=== PATIENT | female | born 1945 | race African-American/Black ===

== ENCOUNTER 2016-02-29 09:49 | Outpatient (CLI) | payer MEDICARE, OTHER ==
[2014-05-30 10:05] VITALS: BP 124/70
[2016-02-29 10:40] LABS: eGFR (African) > 60; eGFR (Non-African) > 60
== END 2016-02-29 09:50 ==
LOC: LAB 09:49
PROVIDERS: ATTEND Family Medicine
DX: I10 Essential (primary) hypertension (principal); E11.9 Type 2 diabetes mellitus without complications
CPT/HCPCS: 36415; 80048; 83036

== ENCOUNTER 2016-06-28 09:39 | Outpatient (CLI) | payer MEDICARE, OTHER ==
[2014-05-30 10:05] VITALS: BP 124/70
== END 2016-06-28 09:40 ==
LOC: LAB 09:39
PROVIDERS: ATTEND Family Medicine
DX: E78.00 Pure hypercholesterolemia, unspecified (principal)
CPT/HCPCS: 36415; 80061

== ENCOUNTER 2016-11-01 10:00 | Outpatient (CLI) | payer MEDICARE, OTHER ==
[2014-05-30 10:05] VITALS: BP 124/70
[2016-11-01 17:31] LABS: TOTAL PROTEIN 7.6 g/dL (6.0-8.5)
== END 2016-11-01 10:02 ==
LOC: LAB 10:00
PROVIDERS: ATTEND Family Medicine
DX: E11.9 Type 2 diabetes mellitus without complications (principal)
CPT/HCPCS: 36415; 80053; 83036

== ENCOUNTER 2018-01-12 11:59 | Outpatient (CLI) | payer MEDICARE, OTHER ==
[2014-05-30 10:05] VITALS: BP 124/70
== END 2018-01-12 12:00 ==
LOC: LAB 11:59
PROVIDERS: ATTEND Internal Medicine
DX: E21.3 Hyperparathyroidism, unspecified (principal); E21.0 Primary hyperparathyroidism
CPT/HCPCS: 36415; 80069; 83735

== ENCOUNTER 2018-05-13 11:40 | Outpatient (CLI) | payer MEDICARE, OTHER ==
[2014-05-30 10:05] VITALS: BP 124/70
[2018-05-13 13:16] LABS: MEAN CORPUSCULAR HEMOGLOBIN 28.3 pg (28.0-34.0); MONOCYTES % 4.5 % (0.0-11.0)
[2018-05-13 13:17] LABS: BASOPHILS % 0.5 % (0.0-1.5); EOSINOPHILS % 1.3 % (0.0-6.8); NEUTROPHILS # 2.4 # k/uL (1.4-7.7)
[2018-05-13 13:28] LABS: eGFR (Non-African) > 60
== END 2018-05-13 11:42 ==
LOC: LAB 11:40
PROVIDERS: ATTEND Family Medicine
DX: E78.00 Pure hypercholesterolemia, unspecified (principal); I10 Essential (primary) hypertension
CPT/HCPCS: 36415; 80053; 80061; 85025

== ENCOUNTER 2019-01-13 12:12 | Outpatient (CLI) | payer MEDICARE, OTHER ==
[2014-05-30 10:05] VITALS: BP 124/70
[2019-01-13 13:12] LABS: A1C 5.8 % (<5.7)
[2019-01-13 14:29] LABS: eGFR (Non-African) > 60
[2019-01-13 14:30] LABS: MAGNESIUM 1.5 mIU/l (1.6-2.3)
== END 2019-01-13 12:17 ==
LOC: LAB 12:12
PROVIDERS: ATTEND Physician Assistant
DX: E21.3 Hyperparathyroidism, unspecified (principal); E11.9 Type 2 diabetes mellitus without complications; E05.90 Thyrotoxicosis, unspecified without thyrotoxic crisis or storm
CPT/HCPCS: 36415; 80053; 82043; 82306; 83036; 83735; 84100; 84439; 84443